=== PATIENT | female | born 2000 | race Hispanic/Latino ===

== ENCOUNTER 2022-06-08 20:03 | Emergency (ER) | payer OTHER ==
[~2022-06-08] VITALS: Ht 160 cm; Wt 123.8 kg
[2022-06-08 20:40] VITALS: BP 145/94
[2022-06-08] MEDS ORDERED: CEPH500B PO (20:50)
[2022-06-08] MEDS ORDERED: CEPHALEXIN 500 MG CAPSULE PO ONE (21:00)
== END 2022-06-08 21:04 | disposition home or self-care (01) ==
LOC: EDH 20:03
DX: L83 Acanthosis nigricans (principal); L73.9 Follicular disorder, unspecified; E66.01 Morbid (severe) obesity due to excess calories; Z68.42 Body mass index [BMI] 45.0-49.9, adult; J45.909 Unspecified asthma, uncomplicated

== ENCOUNTER 2025-01-05 23:55 | Emergency (ER) | payer OTHER ==
[~2025-01-05] VITALS: Ht 157.5 cm; Wt 129.7 kg
[~2025-01-05 23:55] MED LIST: CEPH500B PO
--- NOTE | 2025-01-06 00:11 | ERN ---
General Chief Complaint: Other Problems Stated Complaint: C/O SWALLOWING PILL WRONG WAY Time Seen by MD: 23:59 History of Present Illness Initial Comments Patient comes in with complaint of some discomfort in her throat after taking two tablets of NyQuil. She took two liquid gel caps of NyQuil. She swallowed one and then was taken the 2nd one and felt like it may have gotten stuck. This happened more than an hour ago. We will difficulty breathing no choking she has been able to drink water fine but she feels a bit of irritation there. No stridor. Comes in for evaluation. Allergies: Coded Allergies: No Known Allergies (Unverified Allergy, Unknown, 06/08/22) Home Meds Active Scripts Cephalexin Monohydrate (Keflex) 500 Mg Cap, 500 MG PO TID for 7 Days, #21 CAP Prov:MICK BAILEY 06/08/22 Past Medical History Past Medical History: Asthma Medical History Other: Morbidly obese Past Surgical History: None Family History Family History: Negative Social History Social History: Negative Female( History) LMP: Dec 28, 2024 ROS Dictation Ten systems reviewed and negative except as noted in HPI Physical Exam Physical Exam Dictation GEN: non toxic, NAD HEENT: atrumatic, PERRL, EOMI, conjunctivae normal. Oropharynx clear. Midline uvula. No exudate. Neck is soft and supple. No foreign bodies appreciated. NECK: Soft supple nontender Heart RRR, no murmurs Chest: No deformity Lungs: Lungs clear to auscultation Ab: Soft nondistended nontender Back: No midline step-offs. No gross deformity. No CVA tenderness : m/s: Moving all four extremities. No gross deformity Neuro: CN 2-12 intact. Moving all four extremities. Psych: Cooperative MDM I think patient likely has a bit of irritation. The NyQuil tablets she took are quite big. However they are nontoxic. More likely it is a bit of local irritation. No difficulty breathing or stridor no trouble with secretions. Think this will be self-limited and should be feeling better in the morning. Return for worsening symptoms for other concerns although patient appears well and I do not believe liquid cap is still stuck. ED Course Vital Signs Date Time Temp Pulse Resp B/P (MAP) Pulse Ox O2 Delivery O2 Flow Rate FiO2 01/05/25 23:57 98.8 91 20 138/82 100 Room Air DX & DISP Disposition: Discharge Departure Impression: Primary Impression: Foreign body sensation, throat Condition: Stable Additional Instructions: Return for re-evaluation if symptoms continue or worsen tomorrow, you develop difficulty breathing or swallowing or any other concerns Referrals: SELF,REFERRAL (PCP) MARIAM ALFORD MD Jan 06, 2025 00:11
[2025-01-06 00:18] VITALS: BP 128/78; PULSE 88; RESP 16; TEMP 98.1; O2SAT 100
== END 2025-01-06 00:18 | disposition home or self-care (01) ==
LOC: EDH 23:55
DX: R09.A2 Foreign body sensation, throat (principal); J45.909 Unspecified asthma, uncomplicated; E66.01 Morbid (severe) obesity due to excess calories; Z68.43 Body mass index [BMI] 50.0-59.9, adult
CPT/HCPCS: 99281; 99282